=== PATIENT | female | born 1990 | race Hispanic/Latino ===

== ENCOUNTER 2017-10-21 05:35 | Day surgery (SDC) | payer BC ==
[2017-10-20 17:35] VITALS: BP 120/74
[2017-10-20 17:43] LABS: BASOPHILS % (AUTO) 0.5 % (0.0-5.0); EOSINOPHILS % (AUTO) 2.2 % (0.0-8.0); HEMATOCRIT 38.6 % (36-48); LYMPHOCYTES % (AUTO) 28.7 % (21.0-51.0); MEAN CORPUSCULAR HGB CONC 35.7 g/dL (32.0-36.0); MEAN CORPUSCULAR VOLUME 86.7 fL (79-99); MONOCYTES % (AUTO) 10.9 % (3.0-13.0); NEUTROPHILS % (AUTO) 57.7 % (40.0-77.0); PLATELET COUNT (AUTO) 224 K/uL (130-400); RED BLOOD CELL COUNT(AUTO) 4.45 MIL/uL (4.00-5.50); RED CELL DISTRIBUTION WIDTH 12.7 % (11.0-15.5); WHITE BLOOD COUNT (AUTO) 7.1 K/uL (4.8-10.8)
[2017-10-21] VITALS (12 sets, daily range): BP systolic 107–135; BP diastolic 59–90
[~2017-10-21] VITALS: Ht 160 cm; Wt 73.2 kg
[2017-10-21] MEDS ORDERED: LACTATED RINGERS 1000ML 1,000 ML IV ONE (06:11)
[2017-10-21] MEDS ORDERED: ACETIC ACID 0.25% 1,000 ML IRRIG.SOLN ONE (07:15)
[2017-10-21] MEDS ORDERED: STRONG IODINE SOLUTION 30ML BOTTLE ONE (07:16)
[2017-10-21] MEDS ORDERED: GLYCOPYRROLATE 0.2 MG/ML 5 ML VIAL ONE (07:21)
[2017-10-21] MEDS ORDERED: LIDOCAINE PF 2% 5ML ABBOJECT ONE (07:21)
[2017-10-21] MEDS ORDERED: DEXAMETHASONE SOD PHOSPHATE 10MG/ML 1ML VIAL ONE (07:21)
[2017-10-21] MEDS ORDERED: PROPOFOL 10 MG/ML 20ML VIAL IV ONE (07:23)
[2017-10-21] MEDS ORDERED: MIDAZOLAM HCL 1 MG/ML 2ML VIAL ONE (07:23)
[2017-10-21] MEDS ORDERED: FENTANYL CITRATE PF 50 MCG/1 ML 2ML VIAL ONE (07:24)
[2017-10-21] MEDS ORDERED: MEPERIDINE-PF 25 MG/ML SYG ONE ×3 (08:20→08:42)
[2017-10-21] MEDS ORDERED: KETOROLAC TROMETHAMINE 30MG/ML ONE (08:26)
[2017-10-21] MEDS ORDERED: PROMETHAZINE HCL 25 MG/ML 1ML AMPULE IM ONE (08:42)
== END 2017-10-21 10:07 | disposition home or self-care (01) ==
LOC: DAH 05:35 → SUH 05:35
PROVIDERS: ATTEND Obstetrics & Gynecology
DX: R87.613 High grade squamous intraepithelial lesion on cytologic smear of cervix (HGSIL) (principal); E66.9 Obesity, unspecified; Z86.010 Personal history of colon polyps
CPT/HCPCS: 36415; 57522; 84703; 85025; 86850; 86900; 86901; 88307; A4351; A4510; A4600; A4606; J1100; J1885; J2001; J2175 ×3; J2250; J2550; J2704; J3010; J3490; J7120

== ENCOUNTER 2019-12-08 09:00 | Emergency (ER) | payer BC, MEDICAID ==
[2019-12-08 09:58] LABS: APPEARANCE,URINE Clear (CLEAR); BILIRUBIN,URINE Negative (NEGATIVE); COLOR,URINE Yellow (YELLOW); GLUCOSE, URINE (UA) Negative (NEGATIVE); KETONES,URINE Negative (NEGATIVE); LEUKOCYTE ESTERASE ,URINE Negative (NEGATIVE); NITRATE,URINE Negative (NEGATIVE); OCCULT BLOOD,URINE Negative (NEGATIVE); PROTEIN,URINE Negative (NEGATIVE); UROBILINOGEN,URINE 0.2 mg/dL (0.2-1.0)
[2019-12-08] MEDS ORDERED: ONDANSETRON HCL 4 MG/2 ML VIAL ONE (10:04)
[2019-12-08 10:23] LABS: BASOPHILS % (AUTO) 0.2 % (0.0-5.0); HEMATOCRIT 34.5 % (36-48); LYMPHOCYTES % (AUTO) 13.3 % (21.0-51.0); MEAN CORPUSCULAR HEMOGLOBIN 29.6 pg (27.0-33.0); MEAN CORPUSCULAR HGB CONC 33.3 g/dL (32.0-36.0); MEAN CORPUSCULAR VOLUME 88.9 fL (79-99); MONOCYTES % (AUTO) 9.2 % (3.0-13.0); NEUTROPHILS % (AUTO) 74.6 % (40.0-77.0); PLATELET COUNT (AUTO) 223 K/uL (130-400); RED BLOOD CELL COUNT(AUTO) 3.88 MIL/uL (4.00-5.50); WHITE BLOOD COUNT (AUTO) 9.1 K/uL (4.8-10.8)
[2019-12-08 10:33] LABS: CREATININE 0.6 mg/dL (0.5-1.5); POTASSIUM 3.7 mmol/L (3.5-5.1)
[2019-12-08 10:59] LABS: ALBUMIN 2.7 g/dL (3.5-5.0); BILIRUBIN,DIRECT 0.1 mg/dL (0.0-0.3); BILIRUBIN,TOTAL 0.1 mg/dL (0.2-1.0); TOTAL PROTEIN, SERUM 6.3 g/dL (6.0-8.3)
== END 2019-12-08 12:35 | disposition home or self-care (01) ==
LOC: EDH 09:00
DX: O26.892 Other specified pregnancy related conditions, second trimester (principal); O20.0 Threatened abortion; R10.9 Unspecified abdominal pain; Z3A.15 15 weeks gestation of pregnancy
CPT/HCPCS: 36415; 76805; 80048; 80076; 81003; 82550; 83690; 84702; 85025; 96374; 99284; J2405

== ENCOUNTER 2020-06-23 09:11 | Day surgery (SDC) | payer BC, MEDICAID ==
[2020-06-19 13:02] LABS: BASOPHILS % (AUTO) 0.3 % (0.0-5.0); EOSINOPHILS % (AUTO) 3.3 % (0.0-8.0); LYMPHOCYTES % (AUTO) 26.7 % (21.0-51.0); MEAN CORPUSCULAR HEMOGLOBIN 27.3 pg (27.0-33.0); MEAN CORPUSCULAR HGB CONC 32.3 g/dL (32.0-36.0); MEAN CORPUSCULAR VOLUME 84.4 fL (79-99); MONOCYTES % (AUTO) 7.1 % (3.0-13.0); PLATELET COUNT (AUTO) 316 K/uL (130-400); RED BLOOD CELL COUNT(AUTO) 4.62 MIL/uL (4.00-5.50); WHITE BLOOD COUNT (AUTO) 6.3 K/uL (4.8-10.8)
[~2020-06-23] VITALS: Ht 160 cm; Wt 77.6 kg
[2020-06-23] VITALS (17 sets, daily range): BP systolic 111–145; BP diastolic 60–86
[2020-06-23] MEDS: CEFAZOLIN SODIUM 1 GM VIAL IVP ONE ×2 (08:00→10:20)
[~2020-06-23 09:11] MED LIST: LACTATED RINGERS 1000ML 1,000 ML IV SCH
[2020-06-23] MEDS ORDERED: CEFAZOLIN SODIUM 1 GM VIAL ONE (09:32)
[2020-06-23] MEDS ORDERED: BUPIVACAINE/PF 0.5% 10ML VIAL ONE (09:38)
[2020-06-23] MEDS ORDERED: DEXAMETHASONE SOD PHOSPHATE 10MG/ML 1ML VIAL ONE (10:06)
[2020-06-23] MEDS ORDERED: LIDOCAINE PF 2% 5ML ABBOJECT ONE (10:06)
[2020-06-23] MEDS ORDERED: ROCURONIUM 10MG/1ML SYR 10 MG/ML ML ONE (10:07)
[2020-06-23] MEDS ORDERED: MIDAZOLAM HCL 1 MG/ML 2ML VIAL ONE (10:07)
[2020-06-23] MEDS ORDERED: ONDANSETRON HCL 4 MG/2 ML VIAL ONE (10:07)
[2020-06-23] MEDS ORDERED: FENTANYL CITRATE PF 50 MCG/1 ML 2ML VIAL ONE (10:07)
[2020-06-23] MEDS ORDERED: PROPOFOL 10 MG/ML 20ML VIAL IV ONE (10:07)
[2020-06-23] MEDS ORDERED: NEOSTIGMINE 5MG/5ML SYR IV ONE (11:35)
[2020-06-23] MEDS ORDERED: GLYCOPYRROLATE 1 MG/5 ML SYRINGE ONE (11:35)
[2020-06-23] MEDS ORDERED: MEPERIDINE-PF 25 MG/ML SYG ONE ×2 (12:02→12:10)
== END 2020-06-23 13:24 | disposition home or self-care (01) ==
LOC: DAH 09:11
PROVIDERS: ATTEND Obstetrics & Gynecology
DX: Z30.2 Encounter for sterilization (principal); N83.201 Unspecified ovarian cyst, right side; Z20.828 Contact with and (suspected) exposure to other viral communicable diseases
CPT/HCPCS: 36415 ×2; 58662; 58670; 84703; 85025; 86850 ×2; 86900 ×2; 86901 ×2; A4215; A4216; A4222; A4223 ×2; A4663; C9803; J0690; J1100; J2001; J2175 ×2; J2250; J2405; J2704; J2710; J3010; J3490 ×2; J7030; J7120; U0003; A4351